=== PATIENT | male | born 1955 | race Caucasian/White ===

== ENCOUNTER 2020-01-13 10:16 | Outpatient (CLI) | payer OTHER ==
[2020-01-13 10:37] LABS: #Basophils 0.2 thou/uL (0.0-0.2); #Eosinphils 0.4 thou/uL (0.0-0.7); #Lymphocytes 2.5 thou/uL (1.20-3.40); #Neutrophils 4.8 thou/uL (1.40-6.50); %Basophils 1.7 % (0.0-1.0); %Eosinophils 4.7 % (0.0-10.0); %Lymphocytes 27.9 % (21.0-51.0); %Monocytes 11.5 % (0.0-10.0); %Neutrophils 54.1 % (42.0-75.0); Hemoglobin 16.3 g/dL (14.0-18.0); Mean Corpuscular HGB CONC 30.8 g/dL (32.0-36.0); Mean Corpuscular Hemoglobin 29.4 pg (27.0-31.0); Mean Corpuscular Volume 95.3 fL (78.0-98.0); Platelet Count 297 thou/uL (130-400); RBC Distribution Width 11.6 % (11.5-14.5); Red Blood Cell (RBC) Count 5.55 mill/uL (4.70-6.10); White Blood Cell (WBC) Count 8.8 thou/uL (4.8-10.8)
[2020-01-13 10:57] LABS: ALT (SGPT) 23 U/L (8-55); AST (SGOT) 19 U/L (5-34); Albumin 4.4 g/dL (3.4-4.8); Alkaline Phosphatase 87 U/L (40-110); Anion Gap 14 mmol/L (10-20); BUN (Urea Nitrogen) 11 mg/dL (8.4-25.7); Bilirubin, Total 0.6 mg/dL (0.2-1.2); Calc. Creatinine Clearance 0 mL/min (70-130); Calcium 9.3 mg/dL (7.8-10.44); Carbon Dioxide 23 mmol/L (23-31); Cardiac Risk 4.7 (Less than 4.5); Chloride 106 mmol/L (98-107); Cholesterol 198 mg/dl (< 200 Desired); Estimated GFR-MDRD 83; Globulin 3.1 g/dL (2.4-3.5); Glucose 91 mg/dL (80-115); HDL Cholesterol 42 mg/dL (>60 Neg Risk); LDL Cholesterol, Calculated 135 mg/dL; Potassium 4.3 mmol/L (3.5-5.1); Protein, Total 7.5 g/dL (5.8-8.1); Sodium 139 mmol/L (136-145); Triglycerides 107 mg/dL (Less than 150)
[2020-01-13 11:16] LABS: Thyroid Stimulating Hormone 0.8726 uIU/mL (0.35-4.94)
[2020-01-13 17:56] LABS: PSA-Asymptomatic (SCREENING) 2.57 ng/mL (0-4.0)
--- NOTE | 2020-01-13 20:31 | RAD ---
CHEST TWO VIEWS: 01/13/20 Comparison is made with the 01/26/14 study. The heart is normal in size and the lungs are clear. No pleural thickening or calcified plural plaque s could be seen. The lungs are clear without any obvious severe fibrotic change. No pulmonary masses are apparent. The mediastinum was unremarkable. IMPRESSION: Stable exam showing no acute findings. POS: HOME
== END 2020-01-13 10:17 | disposition home or self-care (01) ==
LOC: BURRAD 10:16
PROVIDERS: ATTEND Family Medicine
DX: Z12.5 Encounter for screening for malignant neoplasm of prostate (principal); E78.5 Hyperlipidemia, unspecified; I10 Essential (primary) hypertension; Z77.090 Contact with and (suspected) exposure to asbestos
CPT/HCPCS: 36415; 71046; 80053; 80061; 84443; 85025; G0103

== ENCOUNTER 2024-04-05 09:39 | Outpatient (CLI) | payer MEDICARE | END 2024-04-05 09:40 | disposition home or self-care (01) | LOC: BURRAD 09:39 | PROVIDERS: ATTEND Family Medicine | DX: Z77.090 Contact with and (suspected) exposure to asbestos (principal) | CPT/HCPCS: 71046 ==